=== PATIENT | male | born 1965 | race Two or more races ===

== ENCOUNTER 2024-07-28 07:46 | Day surgery (SDC) | payer MEDICARE, OTHER ==
[2024-07-28 08:24] VITALS: RESP 16; TEMP 97
[2024-07-28] MEDS: IV FLUID CONTINUATION 1,000 ML IV ONE (08:29)
[2024-07-28] MEDS: LACTATED RINGERS 1,000 ML IV SCH (08:29)
[2024-07-28] MEDS ORDERED: PROPOFOL 10 MG/ML 20 ML VIAL IV ONE (08:37)
[2024-07-28 08:39] LABS: Glucose,Whole Blood 130 mg/dL (70-110)
--- NOTE | 2024-07-28 08:43 | P.GSHP ---
History of Present Illness H&P Date: 07/28/24 CHIEF COMPLAINT: GI bleed HISTORY OF PRESENT ILLNESS: The patient is a 58-year-old male who presents with GI bleed over 6 months. He is on blood thinners. Upper and lower endoscopy were offered for further evaluation and management. PAST MEDICAL HISTORY: Please see list. PAST SURGICAL HISTORY: Please see list. MEDICATIONS: Please see list. ALLERGIES: Please see list. SOCIAL HISTORY: No illicit drug use FAMILY HISTORY: No reports of Crohn disease or ulcerative colitis. REVIEW OF ORGAN SYSTEMS: CONSTITUTIONAL: No reports of fevers or chills. GI: Past GI bleed. PHYSICAL EXAM: VITAL SIGNS: Stable GENERAL: Well-developed pleasant in no acute distress. HEENT: No scleral icterus. Extraocular movements grossly intact. Moist buccal mucosa. NECK: Supple without lymphadenopathy. CHEST: Unlabored respirations. Equal bilateral excursions. CARDIOVASCULAR: Regular rate and rhythm. Distal 2+ pulses. ABDOMEN: Soft, nondistended. MUSCULOSKELETAL: No clubbing, cyanosis, or edema. ASSESSMENT: 1. GI bleed 2. Morbid obesity excess calories, BMI 53.8 PLAN: 1. Recommend proceeding with an upper and lower endoscopy 2. He is elevated risk. Past Medical History Past Medical History: Atrial Fibrillation, Asthma, Chest Pain / Angina, Diabetes Mellitus, GERD/Reflux, Hyperlipidemia, Hypertension, Osteoarthritis (OA), Sleep Apnea/CPAP/BIPAP Additional Past Medical History / Comment(s): uses CPAP, back arthritis History of Any Multi-Drug Resistant Organisms: None Reported Additional Past Surgical History / Comment(s): colonoscopy Past Anesthesia/Blood Transfusion Reactions: No Reported Reaction Smoking Status: Never smoker Medications and Allergies Home Medications Medication Instructions Recorded Confirmed Type Albuterol Inhaler [Ventolin Hfa 1 - 2 puff INHALATION Q6H PRN 07/26/24 07/26/24 History Inhaler] Apixaban [Eliquis] 5 mg PO BID 07/26/24 07/26/24 History Aspirin [Adult Low Dose Aspirin EC] 81 mg PO DAILY 07/26/24 07/26/24 History Cetirizine HCl [Zyrtec] 10 mg PO DAILY 07/26/24 07/26/24 History Empagliflozin [Jardiance] 25 mg PO DAILY 07/26/24 07/26/24 History Fluticasone/Umeclidin/Vilanter 1 puff INHALATION DAILY 07/26/24 07/26/24 History [Trelegy Ellipta 200-62.5-25] Furosemide [Lasix] 40 mg PO BID 07/26/24 07/26/24 History HYDROcodone/APAP 10-325MG [[place] 1 tab PO Q4-6H PRN 07/26/24 07/26/24 History 10-325] Insulin Glargine [Lantus Vial] 100 unit SQ HS 07/26/24 07/26/24 History Insulin Lispro 100 units SQ TID 07/26/24 07/26/24 History Morphine Sulfate ER [Ms Contin] 15 mg PO Q12HR 07/26/24 07/26/24 History Omeprazole 40 mg PO DAILY 07/26/24 07/26/24 History Rosuvastatin [Crestor] 10 mg PO DAILY 07/26/24 07/26/24 History lisinopriL 40 mg PO DAILY 07/26/24 07/26/24 History metFORMIN HCL 1,000 mg PO BID 07/26/24 07/26/24 History Allergies Allergy/AdvReac Type Severity Reaction Status Date / Time Penicillins Allergy Anaphylaxis Verified 07/28/24 08:19 Surgical - Exam Vital Signs Temp Pulse Resp BP Pulse Ox 97.0 F L 71 16 161/86 97 07/28/24 08:22 07/28/24 08:22 07/28/24 08:22 07/28/24 08:22 07/28/24 08:22 Results - Labs Abnormal Lab Results - Last 24 Hours (Table) 07/28/24 Range/Units 08:31 POC Glucose (mg/dL) 130 H (70-110) mg/dL
--- NOTE | 2024-07-28 08:51 | P.PCN ---
Date of Procedure: 07/28/24 Description of Procedure: PREOPERATIVE DIAGNOSIS: Gastrointestinal bleeding Chronic anticoagulant use Morbid obesity excess calories, BMI 53.8 POSTOPERATIVE DIAGNOSIS: Gastroesophageal reflux disease with erosive esophagitis Acute gastritis with bleeding OPERATION: Esophagogastroduodenoscopy with cold forceps biopsies along esophagus, antrum and duodenum SURGEON: Alina Arellano MD ANESTHESIA: MAC. INDICATIONS: The patient is a 58-year-old male who presents with reflux disease. Benefits and risks of the procedure were described. Informed consent was obtained. DESCRIPTION: The patient was brought into the endoscopy suite and laid in the left lateral decubitus position. An Olympus gastroscope was passed along the posterior oropharynx down to the distal esophagus where the squamocolumnar junction was encountered at 45 cm from the incisors. The stomach was entered and no bile reflux was found. Additional findings are listed below. Biopsies with cold forceps were obtained of the antrum. The first through third portion of the duodenum was examined. Retroflexion of the scope confirmed Hill grade 2 lower esophageal valve. The squamocolumnar junction demonstrated LA grade C erosive esophagitis. The stomach was desufflated. The patient tolerated the procedure well. FINDINGS: Squamocolumnar junction 40 cm from the incisors. Diaphragmatic hiatus at 40 cm. Hill grade 2 lower esophageal valve. LA grade C erosive esophagitis. Biopsies obtained of the duodenum. Acute on chronic gastritis with bleeding, biopsies obtained. Gastric polyps, antrum, biopsies obtained RECOMMENDATIONS: Recommend omeprazole 40 mg daily for bleed Recommend Carafate twice daily complete Upper endoscopy as needed.
--- NOTE | 2024-07-28 09:17 | P.PCN ---
Date of Procedure: 07/28/24 Description of Procedure: PREOPERATIVE DIAGNOSIS: Gastrointestinal bleeding Morbid obesity excess calories, BMI 53.8 Chronic anticoagulant use POSTOPERATIVE DIAGNOSIS: Tubular adenoma hepatic flexure Tubular adenoma transverse colon Internal hemorrhoids, grade 4 External hemorrhoids, grade 4 OPERATION: Colonoscopy to the ileocecal valve and appendiceal orifice, cecum Colonoscopy with hot snare polypectomy SURGEON: Alina Arellano MD. ANESTHESIA: MAC. INDICATIONS: The patient is an 58-year-old male who presents with GI bleed. Last colonoscopy over 5 years. Benefits and risks were described and informed consent was obtained. DESCRIPTION OF PROCEDURE: The patient had undergone Sutab prep. The patient had been brought into the operating room and laid in the left lateral decubitus position. After adequate intravenous sedation, the rectum was examined with 2% lidocaine jelly. The pros lundberg was unremarkable. External hemorrhoids were encountered. The rectal tone was within normal limits. No lesions were palpated in the rectal vault. An Olympus colonoscope was advanced until the cecum, ileocecal valve and appendiceal orifice was viewed however with semisolid stool. The prep was fair. No sigmoid diverticulosis was encountered. Colonic polyps were found and removed. No evidence of focal colitis was found. Retroflexion of the scope demonstrated grade 2 internal hemorrhoids without active bleeding or inflammation. The colon was desufflated. The patient had tolerated the procedure well. Withdrawal time was over 6 minutes. FINDINGS: Aronchick preparation quality scale 3 (1-5) Internal hemorrhoids, grade 3 External hemorrhoids, grade 4. No arteriovenous malformations. No sigmoid diverticulosis Removal of 2 polyps: - Snare polypectomy hepatic flexure, 5 mm tubulovillous adenoma - Snare polypectomy transverse colon, 9 mm flat villous adenoma No focal colitis. RECOMMENDATIONS: Given severity of tubular adenomas, recommend repeat colonoscopy 3 years, 2026 Plan - Discharge Summary Discharge Rx Participant: No New Discharge Prescriptions: Continue Aspirin [Adult Low Dose Aspirin EC] 81 mg PO DAILY Insulin Lispro 100 units SQ TID Albuterol Inhaler [Ventolin Hfa Inhaler] 1 - 2 puff INHALATION Q6H PRN PRN Reason: Shortness Of Breath Furosemide [Lasix] 40 mg PO BID Rosuvastatin [Crestor] 10 mg PO DAILY lisinopriL 40 mg PO DAILY Apixaban [Eliquis] 5 mg PO BID Morphine Sulfate ER [Ms Contin] 15 mg PO Q12HR HYDROcodone/APAP 10-325MG [[place] 10-325] 1 tab PO Q4-6H PRN PRN Reason: Pain Insulin Glargine [Lantus Vial] 100 unit SQ HS Fluticasone/Umeclidin/Vilanter [Trelegy Ellipta 200-62.5-25] 1 puff INHALATION DAILY Empagliflozin [Jardiance] 25 mg PO DAILY metFORMIN HCL 1,000 mg PO BID Omeprazole 40 mg PO DAILY Cetirizine HCl [Zyrtec] 10 mg PO DAILY Discharge Medication List Albuterol Inhaler [Ventolin Hfa Inhaler] 1 - 2 puff INHALATION Q6H PRN 07/26/24 [History] Apixaban [Eliquis] 5 mg PO BID 07/26/24 [History] Aspirin [Adult Low Dose Aspirin EC] 81 mg PO DAILY 07/26/24 [History] Cetirizine HCl [Zyrtec] 10 mg PO DAILY 07/26/24 [History] Empagliflozin [Jardiance] 25 mg PO DAILY 07/26/24 [History] Fluticasone/Umeclidin/Vilanter [Trelegy Ellipta 200-62.5-25] 1 puff INHALATION DAILY 07/26/24 [History] Furosemide [Lasix] 40 mg PO BID 07/26/24 [History] HYDROcodone/APAP 10-325MG [[place] 10-325] 1 tab PO Q4-6H PRN 07/26/24 [History] Insulin Glargine [Lantus Vial] 100 unit SQ HS 07/26/24 [History] Insulin Lispro 100 units SQ TID 07/26/24 [History] Morphine Sulfate ER [Ms Contin] 15 mg PO Q12HR 07/26/24 [History] Omeprazole 40 mg PO DAILY 07/26/24 [History] Rosuvastatin [Crestor] 10 mg PO DAILY 07/26/24 [History] lisinopriL 40 mg PO DAILY 07/26/24 [History] metFORMIN HCL 1,000 mg PO BID 07/26/24 [History] Follow up Appointment(s)/Referral(s): Alina Arellano MD [STAFF PHYSICIAN] - 09/07/24 11:30 am Patient Instructions/Handouts: Colorectal Polyps (GEN), Gastritis (DC), Hemorrhoids (DC) Activity/Diet/Wound Care/Special Instructions: RESUME BLOOD THINNER 07/31/24 Repeat colonoscopy 3 years, 2026 Discharge Disposition: HOME SELF-CARE
[2024-07-28 09:26] VITALS: BP 142/82; PULSE 66
== END 2024-07-28 10:05 | disposition home or self-care (01) ==
LOC: ORWHC2ENDO 07:46
PROVIDERS: ATTEND Surgery Plastic and Reconstructive Surgery
DX: K29.50 Unspecified chronic gastritis without bleeding (principal); K21.00 Gastro-esophageal reflux disease with esophagitis, without bleeding; D12.3 Benign neoplasm of transverse colon; K29.01 Acute gastritis with bleeding; K64.3 Fourth degree hemorrhoids; K64.2 Third degree hemorrhoids; K64.4 Residual hemorrhoidal skin tags; I48.91 Unspecified atrial fibrillation; J45.909 Unspecified asthma, uncomplicated; G47.33 Obstructive sleep apnea (adult) (pediatric); I25.2 Old myocardial infarction; I20.9 Angina pectoris, unspecified; E11.9 Type 2 diabetes mellitus without complications; I10 Essential (primary) hypertension; E78.5 Hyperlipidemia, unspecified; M19.90 Unspecified osteoarthritis, unspecified site; F17.220 Nicotine dependence, chewing tobacco, uncomplicated; E66.01 Morbid (severe) obesity due to excess calories; Z68.43 Body mass index [BMI] 50.0-59.9, adult; Z88.0 Allergy status to penicillin; Z79.899 Other long term (current) drug therapy; Z79.82 Long term (current) use of aspirin; Z79.01 Long term (current) use of anticoagulants; Z79.84 Long term (current) use of oral hypoglycemic drugs; Z79.4 Long term (current) use of insulin; Z99.89 Dependence on other enabling machines and devices
CPT/HCPCS: 88305; 88342; 45385; 43239; J2704